=== PATIENT | female | born 1985 | race Caucasian/White ===

== ENCOUNTER 2025-05-10 10:13 | Emergency (ER) | payer OTHER ==
[~2025-05-10] VITALS: Ht 162.6 cm; Wt 80.6 kg
[2025-05-10 10:48] LABS: MEAN PLATELET VOLUME 7.9 FL (7.4-10.4); RED CELL DISTRIBUTION WIDTH 12.4 % (11.5-14.5)
[2025-05-10 10:48] LABS: LEUKOCYTE ESTERASE ,URINE NEGATIVE (Neg); OCCULT BLOOD,URINE NEGATIVE (Neg)
[2025-05-10 10:49] LABS: URINE HCG NEGATIVE (NEG)
[2025-05-10 10:52] LABS: UA COLLECTION TYPE CLN CATCH MIDSTREAM
[2025-05-10 10:55] LABS: MUCUS STRANDS MODERATE /LPF (Neg); NITRITES, URINE NEGATIVE (Neg)
[2025-05-10 10:56] LABS: SQUAMOUS EPITHELIAL CELL,UR MANY /LPF (FEW)
[2025-05-10 11:03] LABS: CREATININE 0.98 MG/DL (0.40-0.90); TOTAL CARBON DIOXIDE 25.7 MMOL/L (24-32); eCRCL 68 ML/MIN; eGFR 64 ML/MIN
--- NOTE | 2025-05-10 12:40 | RADIOLOGY REPORT ---
CLINICAL HISTORY: abdominal pain r/o hydronephrosis TECHNIQUE: Complete ultrasound exam of the kidneys and bladder was performed. COMPARISON: None FINDINGS: The right kidney has normal echogenicity and measures 9.8 cm. There is no focal parenchymal abnormality or evidence for stone. There is no hydronephrosis. The left kidney has normal echogenicity and measures 10.3 cm. There is no focal parenchymal abnormality or evidence for stone. There is no hydronephrosis. The bladder is not well distended and therefore not well evaluated. IMPRESSION: NO SIGNIFICANT SONOGRAPHIC ABNORMALITY OF THE KIDNEYS.
--- NOTE | 2025-05-10 12:46 | Physician Documentation ---
History of Present Illness Chief Complaint: Abdominal Pain Stated Complaint: ABDOMINAL PAIN Time Seen by MD: 11:44 OK to notify your PCP?: Yes Source: patient Mode of Arrival: POV Exam Limitations: no limitations HPI 39-year-old female with chief complaint generalized abdominal pain that has been ongoing for at least three weeks. She states the pain moves around. She states today the pain is not as bad as it has been and she can not pinpoint ex actly where it is at currently. She reports that the abdominal pain is causing her anxiety because she starting to really worry that something is seriously wrong since it has persisted. She also reports that she has a lot of acid reflux and heartburn and she is not sure if her abdominal pain is related to this. She has not taken medication for her heartburn or acid reflux other than tums. No fever, chills, nausea, vomiting, diarrhea, constipation, urinary symptoms, blood in stool. Medication Reconciliation Allergies: Coded Allergies: No Known Allergies (Unverified , 05/10/25) Past Medical History Past Medical History: Hypertension Past Surgical History: noncontributory Smoking Status: Never smoker Alcohol Use: None Drug Use: none Lives with: Spouse Lives In: Home Review of Systems All Other Systems at this time: Reviewed and Negative Physical Exam Vital Signs: Temperature: 96.8, Source: Temporal, Heart Rate: 90, Respiratory Rate: 18, BP: 160/96, Pulse Oximetry: 97, Weight: 80.600 Oxygen Flow Rate: 0 Physical Exam GENERAL: Alert, no acute distress. HEENT: NCAT, EOMI, PERRL, normal oropharynx, moist oral mucosa. NECK: Supple, trachea midline. CARDIAC: Regular rate and rhythm, no murmurs, rubs, or gallops. Equal distal pulses. No lower extremity edema, cap refill less than 2 seconds. RESPIRATORY: Equal breath sounds, clear to auscultation bilaterally, no respiratory distress. GASTROINTESTINAL: Non distended, soft, MILD GENERALIZED TTP, No guarding or rebound. MUSCULOSKELETAL: Normal range of motion, nontender, no swelling. Normal gait. NEUROLOGICAL: Awake, alert, and oriented x 3. SKIN: Warm/dry, no pallor, no rash. PSYCH: Alert and appropriate. Affect congruent with mood. Speech is clear. Good eye contact. Progress Results/Orders Results/Orders Orders - OPPEZZO,BRODIE T PA Ultrasound Kidney Non Vasc (05/10/25 12:00) Completed Orders - BRODIE BRAVO T PA Ultrasound Kidney Non Vasc (05/10/25 12:00) Vital Signs 05/10/25 05/10/25 10:17 11:51 Temp 96.8 Pulse 90 Resp 18 18 B/P (MAP) 160/96 Pulse Ox 97 O2 Flow Rate 0 Laboratory Tests Test 05/10/25 10:21 05/10/25 10:36 Urine Specimen Description Cln catch midstream Urine Color Yellow Urine Clarity Clear Urine pH 6.0 Urine Specific [place] >=1.030 Urine Protein 30 H Urine Glucose (UA) Negative Urine Ketones Negative Urine Occult Blood Negative Urine Nitrite Negative Urine Bilirubin Small Urine Urobilinogen 0.2 Urine Leukocyte Esterase Negative Urine RBC 0-2 Urine WBC 0-4 Urine Squamous Epithelial Cells Many Urine Bacteria Few Urine Mucus Moderate Urine Culture Indicated Not ind Volume Urine Centrifuged 3 ml Urine HCG, Qualitative Negative Urine Comment Low volume White Blood Count 7.8 Red Blood Count 5.22 Hemoglobin 16.6 H Hematocrit 47.3 H Mean Corpuscular Volume 90.5 Mean Corpuscular Hemoglobin 31.9 H Mean Corpuscular Hemoglobin Concent 35.2 Red Cell Distribution Width 12.4 Platelet Count 412 Mean Platelet Volume 7.9 Neutrophils (%) (Auto) 70.6 Lymphocytes (%) (Auto) 19.7 L Monocytes (%) (Auto) 5.7 Eosinophils (%) (Auto) 3.5 Basophils (%) (Auto) 0.5 Neutrophils # (Auto) 5.5 Lymphocytes # (Auto) 1.5 Monocytes # (Auto) 0.4 Eosinophils # (Auto) 0.3 Basophils # (Auto) 0.0 CBC Comment Sodium Level 137 Potassium Level 4.0 Chloride Level 98 L Carbon Dioxide Level 25.7 Anion Gap 13 Blood Urea Nitrogen 7 Creatinine 0.98 H Estimated GFR/1.73 m2 64 BUN/Creatinine Ratio 7.1 L Glucose Level 128 H Calcium Level 9.3 Total Bilirubin 0.6 Aspartate Amino Transf (AST/SGOT) 22 Alanine Aminotransferase (ALT/SGPT) 39 Alkaline Phosphatase 77 Total Protein 9.0 H Albumin 4.6 Globulin 4.4 H Albumin/Globulin Ratio 1.0 L Lipase 32 Chemistry Comments Medical Decision Making Additional information obtaine: N/A Findings N/A Differential Dx:Considerations: AAA, Appendicitis, Bowel obstruction, Cholangitis, Cholelithasis, Constipation, Gastritis/PUD, Gastroenteritis, GI hemorrhage, Hernia, Hepatitis, Inflammatory BD, Ischemic bowel, Ovarian cyst/torsion, Pancreatitis, PID, Trauma, intraabdominal, Urinary obstruction, Urinary tract infection, Urolithiasis Additional Comments PATIENT HAS A FAIRLY NORMAL EXAM SHE DOES NOT HAVE ANY RED FLAG SIGNS OR SYMPTOMS FROM AN EMERGENCY ROOM STANDPOINT, HER WHITE BLOOD CELL COUNT IS NOR MAL. THE ONLY ABNORMALITY WITH THE LABS THAT WE COLLECTED WAS PROTEINURIA WHICH GIVEN HER AGE WAS UNUSUAL ENOUGH THAT I FELT IT WAS REASONABLE TO DO A RENAL ULTRASOUND WHICH WAS UNREMARKABLE DID NOT SHOW ANY HYDRONEPHROSIS. I SUSPECT THAT HER PROTEINURIA IS PROBABLY FROM HER LONG HISTORY OF HYPERTENSION WHICH SHE ADMITS SHE HAS NOT BEEN COMPLIANT WITH TREATMENT. Departure Time of Disposition: 12:46 Disposition: 01 HOME / SELF CARE / HOMELESS Impression: Primary Impression: Abdominal pain Qualified Codes: R10.84 - Generalized abdominal pain Additional Impressions: Heartburn Acid reflux Qualified Codes: K21.9 - Gastro-esophageal reflux disease without esophagitis Proteinuria Qualified Codes: R80.9 - Proteinuria, unspecified Condition: Stable Discharge Instructions: Abdominal Pain (Nonspecific) Additional Instructions: YOUR ABDOMINAL PAIN THAT HAS BEEN MOVING AROUND FOR THE PAST FEW WEEKS IS UNCLEAR IN ETIOLOGY, DUE TO HAVING MORE HEARTBURN AND ACID RELUX IT MAY BE DUE TO GASTRITIS, IF YOU ARE NOT TAKING OMEPRAZOLE FOR YOUR GERD/ACID REFLUX I RECOMMEND YOU START AND THEN PROCEED WITH UPPER ENDOSCOPY WHICH WOULD ALL BE DONE BY YOUR PCP YOUR GLUCOSE IS ELEVATED AT 128 AND YOU REPORT YOU ARE FASTING, F/U WITH YOUR PCP ABOUT THIS WELL YOU HAVE PROTEIN IN YOUR URINE WHICH IS LIKELY DUE TO YOUR HISTORY OF UNCONTROLLED HYPERTENSION, YOUR U/S DONE DOES NOT SHOW ANY OBSTRUCTIVE ISSUE WITH THE KIDNEYS YOUR WHITE BLOOD CELL COUNT IS ALSO NORMAL Referrals: NO PRIMARY CARE PROVIDER (PCP) Education Educated: Patient Educated regarding: diagnosis, treatment, need for follow up Signature Scribe Signature: Clark Attestation: BRODIE LARSON May 10, 2025 12:46
[2025-05-10 12:50] VITALS: BP 128/78; PULSE 78; RESP 16; TEMP 98.4; O2SAT 99
== END 2025-05-10 12:53 | disposition home or self-care (01) ==
LOC: ER 10:14
DX: K21.9 Gastro-esophageal reflux disease without esophagitis (principal); R80.9 Proteinuria, unspecified; R10.84 Generalized abdominal pain; I10 Essential (primary) hypertension; F41.9 Anxiety disorder, unspecified
CPT/HCPCS: 36415; 76770; 80053; 81001; 81025; 83690; 85025; 99284